=== PATIENT | male | born 1955 | race Hispanic/Latino ===

== ENCOUNTER 2025-03-25 05:51 | Day surgery (SDC) | payer OTHER ==
[2025-03-24 12:00] VITALS: BP 124/80; PULSE 69; RESP 18; TEMP 97.9
[2025-03-24 12:06] LABS: BASOPHILS # (AUTO) 0.03 K/uL (0.00-0.20); BASOPHILS % (AUTO) 0.5 % (0.0-5.0); EOSINOPHILS # (AUTO) 0.25 K/uL (0.00-0.70); EOSINOPHILS % (AUTO) 3.9 % (0.0-8.0); HEMATOCRIT 45.7 % (42-54); IMMATURE GRANULOCYTE ABSOLUTE 0.04 K/uL (0-1); LYMPHOCYTES # (AUTO) 1.7 K/uL (1.0-4.8); LYMPHOCYTES % (AUTO) 26.3 % (21.0-51.0); MEAN CORPUSCULAR HGB CONC 33.5 g/dL (32.0-36.0); MEAN CORPUSCULAR VOLUME 86.7 fL (79-99); MONOCYTES # (AUTO) 0.5 K/uL (0.1-1.0); MONOCYTES % (AUTO) 7.1 % (3.0-13.0); NEUTROPHILS # (AUTO) 3.9 K/uL (1.8-7.7); NEUTROPHILS % (AUTO) 61.6 % (40.0-77.0); PLATELET COUNT (AUTO) 217 K/uL (130-400); RED BLOOD CELL COUNT(AUTO) 5.27 MIL/uL (4.50-6.20); RED CELL DISTRIBUTION WIDTH 12.8 % (11.0-15.5); WHITE BLOOD COUNT (AUTO) 6.4 K/uL (4.8-10.8)
[2025-03-24 12:08] LABS: APPEARANCE,URINE CLEAR (CLEAR); BILIRUBIN,URINE NEGATIVE (NEGATIVE); COLOR,URINE LIGHT-YELLOW (YELLOW); GLUCOSE, URINE (UA) NEGATIVE (NEGATIVE); KETONES,URINE NEGATIVE (NEGATIVE); LEUKOCYTE ESTERASE ,URINE NEGATIVE Leu/uL (NEGATIVE); NITRATE,URINE NEGATIVE (NEGATIVE); OCCULT BLOOD,URINE NEGATIVE (NEGATIVE); PH,URINE 5.5 (5.0-8.0); PROTEIN,URINE NEGATIVE (NEGATIVE); UROBILINOGEN,URINE 0.2 mg/dL (0.2-1.0)
[2025-03-24 12:15] LABS: INR 1.09 (0.85-1.15); PROTHROMBIN TIME 11.5 SEC (9.6-11.6)
[2025-03-24 12:17] LABS: CREATININE 1.2 mg/dL (0.5-1.3); PARTIAL THROMBOPLASTIN TIME 28.4 SEC (26.3-35.5)
[2025-03-24 12:21] LABS: ADD UA MICROSCOPIC NO
--- NOTE | 2025-03-24 12:28 | HMCIMG ---
CHEST 1VW HISTORY: Preop COMPARISON: None FINDINGS: A frontal projection of the chest was obtained. No acute pulmonary infiltrates is seen. The heart is borderline enlarged. Prominent interstitial markings are seen. Degenerative changes are seen. No evidence of aortic calcification is seen. IMPRESSION: 1. No acute pulmonary infiltrate is seen.
[2025-03-24 12:42] LABS: B-TYPE NATRIURETIC PEPTIDE 16 pg/mL (0-100)
--- NOTE | 2025-03-24 13:24 | EKG ---
[facility] Test Date: 2025-03-24 Test Time: 11:53:26 Pat Name: PALAK CRUZ Department: [facility] Room: [facility] Gender: M Manager Study: [id number] : 1955 Requested By: LISSY VASQUEZ Order Number: [id number] Reading MD: Luther Lea Measurements Intervals Odum Rate: 78 P: -33 OK: 114 QRS: 28 QRSD: 89 T: 52 QT: 406 QTc: 455 Interpretive Statements Sinus rhythm Atrial premature complex No previous ECG available for comparison Electronically Signed On 03-25-2025 16:53:08 CDT by Luther Lea Please click the below link to view image of tracing.
[~2025-03-25] VITALS: Ht 188 cm; Wt 131.5 kg
[2025-03-25] VITALS (10 sets, daily range): BP systolic 110–157; BP diastolic 63–91; PULSE 65–77; RESP 10–20; TEMP 97–97.7
[~2025-03-25 05:51] MED LIST: AMLO1CAP6 PO; ASPI-1443 PO; CHOL2000 PO; ESCI20TA38 PO; PANT40TA54 PO; ROSU10TA72 PO; VITAMIN B12 PO
[2025-03-25] MEDS: 0.9%NACL 1000ML 1,000 ML IV SCH (06:45)
[2025-03-25] MEDS ORDERED: IOHEXOL 350 MG/ML 100ML INFUS..BTL IV ONE (07:14)
[2025-03-25] MEDS ORDERED: HEParin 10,000 UNIT/10ML (1,000 UNIT/ML) VIAL ONE (07:14)
[2025-03-25] MEDS ORDERED: LIDOCAINE HCL 400MG/20ML VIAL ONE (07:14)
[2025-03-25] MEDS ORDERED: IOHEXOL-350 50ML VIAL IV ONE (07:14)
[2025-03-25] MEDS ORDERED: HEParin-NS 1,000 UNIT/500 ML 1,000 ML IV ONE (07:15)
[2025-03-25] MEDS ORDERED: NITROGLYCERIN 50MG VIAL ONE (07:15)
[2025-03-25] MEDS ORDERED: FENTanyl CITRate PF 50 MCG/1 ML 2ML VIAL ONE (07:42)
[2025-03-25] MEDS ORDERED: MIDAZOLAM HCL 1 MG/ML 2ML VIAL ONE (07:42)
[2025-03-25] MEDS ORDERED: BIVALIRUDIN 250 MG/VIAL IV ONE (07:55)
[2025-03-25] MEDS ORDERED: 0.9%NACL 1000ML 1,000 ML IV SCH (09:00)
--- NOTE | 2025-03-25 09:14 | PRN ---
DATE OF PROCEDURE: 03/25/2025 PROCEDURE PERFORMED: LEFT HEART CATHETERIZATION YARN HAULER: Lissy Vasquez MD, [facility] INDICATION: Abnormal stress Cardiolite 02/24/2025 with inferior and inferolateral ischemia, no infarct, and a gated EF of 61%. PROCEDURE NOTE: After informed consent was obtained the patient was prepped and draped in the usual sterile fashion. A 6 Georgian arterial sheath was inserted in the right femoral artery using a micropuncture technique with ultrasound guidance, with a front wall, first pass puncture. This was performed after fluoroscopic identification of bony landmarks to facilitate a more accurate puncture of the right common femoral artery. The arterial sheath was aspirated and flushed. A 6 Georgian pigtail catheter was then advanced over a J-tipped guidewire to the ascending aorta and was prolapsed into the left ventricle. The catheter was aspirated and flushed and pressure measurements were obtained. No LV-gram was performed due to the presence of a solitary kidney (without renal insufficiency). A pullback procedure was then performed, and this catheter was removed over a J-tipped guidewire. A 6F JL-4 was then advanced to the ascending aorta over a J-tipped guidewire, was aspirated and flushed, and was used for selective left coronary angiograms in multiple obliquities. A JR-4 was advanced in a similar fashion to the ascending aorta over a J-tipped guidewire and was used for selective right coronary angiograms in multiple obliquities with findings as outlined below. A right common femoral angiogram was performed to assess suitability for Perclose suture closure and the Perclose device was deployed in standard fashion. Perclose suture closure was successful without bleeding or hematoma. The patient tolerated the procedure well and was returned to the holding area in stable condition. FINDINGS: LEFT HEART HEMODYNAMICS: The patient's LVEDP was 20 mm of mercury. LEFT VENTRICULOGRAM: No left ventriculogram was performed due to the presence of a solitary kidney (without renal insufficiency). CORONARY ANGIOGRAM: LEFT MAIN: The left main coronary was large and normal. LEFT ANTERIOR DESCENDING: The LAD was mildly patulous in the proximal segment with 20% proximal, mid, and distal plaques only. There was slow flow and runoff to the apical LAD requiring five beats for contrast to reach the apex. The diagonal branches were normal. LEFT CIRCUMFLEX: The left circumflex was nondominant and had a 20% ostial stenosis. The obtuse marginal branches were normal. RAMUS INTERMEDIATE BRANCH: The ramus intermediate branch was normal. RIGHT CORONARY ARTERY: The right coronary artery was normal but there was slow flow and runoff into the posterolateral branch requiring six beats for contrast to reach the infero apex. The PDA was normal. IMPRESSION: Abnormal Lexiscan Cardiolite stress test with mild inferior and inferolateral wall ischemia 02/24/2025 with no evidence of infarct and gated EF of 61%. Limiting dyspnea on exertion. No aortic stenosis. Nonobstructive coronary artery disease with 20% proximal, mid, and distal LAD plaques and 20% proximal left circumflex plaque only. Microvascular dysfunction with slow flow and runoff to the anterior apex and infero apex. RECOMMENDATION: Continued statin, MARY inhibitor, and calcium channel jesus therapy. Compliance with CPAP. Progressive weight loss and exercise routine. COMPLICATIONS OF PROCEDURE: None, the patient tolerated the procedure well and was returned to his room in stable condition. HEMOSTASIS: Perclose suture closure was successful without bleeding or hematoma. ESTIMATED BLOOD LOSS: Less than 10 mL. CONTRAST TOTAL: 110 mL. LISSY VASQUEZ MD March 25, 2025 09:14
--- NOTE | 2025-03-25 11:30 | NUR ---
report: hand-off communication given to whitney nicolas rn
--- NOTE | 2025-03-25 11:30 | NUR ---
Received report from Nisha Vásquez RN at this time. Patient resting comfortably in bed, at bedside. Right groin soft, non-tender. No bleeding/oozing or hematoma noted. Denies any concerns at this time. Call light within reach
== END 2025-03-25 13:20 | disposition home or self-care (01) ==
LOC: DAH 05:51
PROVIDERS: ATTEND Internal Medicine Cardiovascular Disease
DX: R94.39 Abnormal result of other cardiovascular function study (principal); I25.10 Atherosclerotic heart disease of native coronary artery without angina pectoris; I10 Essential (primary) hypertension; E78.5 Hyperlipidemia, unspecified; G47.33 Obstructive sleep apnea (adult) (pediatric); R06.00 Dyspnea, unspecified; R73.03 Prediabetes; Z87.891 Personal history of nicotine dependence; Z79.82 Long term (current) use of aspirin; Z79.01 Long term (current) use of anticoagulants; Z82.49 Family history of ischemic heart disease and other diseases of the circulatory system; Z79.899 Other long term (current) drug therapy; Z98.890 Other specified postprocedural states
CPT/HCPCS: 80048; 83880; 85025; 85610; 85730; 81003; 36415; 71045; 93005; 93458; A4223 ×3; Q9965 ×2; C1894 ×2; C1760; J3010; J3490 ×2; J2250; J1644; Q9967; A4215; A4222; A4221; A4663; A4216; A4606; 96360; 96361; 99156; 99157; J0583